=== PATIENT | male | born 1985 | race African-American/Black ===

== ENCOUNTER 2021-10-17 01:33 | Emergency (ER) | payer OTHER ==
[2021-10-17 01:53] VITALS: BP 136/86; PULSE 88; RESP 16; TEMP 99; BMI 27.1
[2021-10-17] MEDS ORDERED: KETOROLAC TROMETHAMINE 30 MG/1 ML VIAL IM ONE (01:58)
[2021-10-17] MEDS ORDERED: METHOCARBAMOL 500 MG TABLET PO ONE (01:58)
[2021-10-17] MEDS ORDERED: ACETAMINOPHEN 500 MG TABLET (FP) PO ONE (01:58)
[2021-10-17] MEDS ORDERED: ACETAMINOPHEN 500 MG TABLET (FP) ONE (02:01)
[2021-10-17] MEDS ORDERED: METHOCARBAMOL 500 MG TABLET ONE (02:01)
[2021-10-17] MEDS ORDERED: KETOROLAC TROMETHAMINE 30 MG/1 ML VIAL ONE (02:01)
[2021-10-17] MEDS ORDERED: diazePAM 5 MG TABLET PO ONE (03:02)
[2021-10-17] MEDS ORDERED: diazePAM 5 MG TABLET ONE (03:07)
== END 2021-10-17 03:52 | disposition home or self-care (01) ==
LOC: FER 01:33
PROC: 3E0233Z Introduction of Anti-inflammatory into Muscle, Percutaneous Approach (ICD-10-PCS; principal; 2021-10-17)
DX: M62.830 Muscle spasm of back (principal)
CPT/HCPCS: 71046-TC-FY; 93005; 99284-25